=== PATIENT | male | born 1970 | race Caucasian/White ===

== ENCOUNTER 2019-02-04 02:32 | Inpatient (IN) | payer OTHER ==
[~2019-02-04] VITALS: Ht 182.8 cm; Wt 118.9 kg
[2019-02-04] VITALS (9 sets, daily range): BP systolic 128–179; BP diastolic 66–103
--- NOTE | ~2019-02-04 | EKG ---
[place], [place] ELECTROCARDIOGRAM REPORT NAME: JOANA GARCIA UNIT #: [id number] ROOM: 405 DOCTOR: LEMUEL DRAFT REPORT BIRTHDATE: [birth year] [facility] Test Date: 2019-02-04 Test Time: 03:00:29 Pat Name: JOANA GARCIA Department: Room: 405 Gender: M Design Inserter: : 1970 Requested By: CHA CARTY Order Number: [id number] Reading MD: Deborah Henderson MD Measurements Intervals [place] Rate: 85 P: 49 CT: 168 QRS: 1 QRSD: 114 T: 12 QT: 389 QTc: 463 Interpretive Statements Sinus rhythm Incomplete right bundle branch block Electronically Signed On 02-04-2019 15:34:58 PDT by Deborah Henderson MD CM:[id number]:ELECTROCARDIOGRAM REPORT [id number] CHA CARTY MD EPIPHANY DRAFT REPORT CHA CARTY MD
[~2019-02-04 02:32] MED LIST: COZAAR100 MG PO; MOTRIN800 MG PO
[2019-02-04] MEDS ORDERED: AMLODIPINE BESYL5 MG PO (02:35)
[2019-02-04] MEDS ORDERED: LOSARTAN-HCTZ1 EAC1 PO (02:36)
[2019-02-04] MEDS ORDERED: METOPROLOL SUCC25 M2 PO (02:36)
--- NOTE | 2019-02-04 03:01 | NUR ---
PT PROMPTED FOR URINE SPECIMEN.
[2019-02-04 03:19] LABS: BASO # 0.1 10*3/uL (0.0-0.1); BASO % 0.7 % (0.0-1.0); EOS # 0.3 10*3/uL (0.0-0.4); EOS % 3.9 % (1.0-4.0); HEMOGLOBIN 14.8 g/dl (14.0-18.0); LYMPH # 1.4 10*3/uL (1.3-4.4); LYMPH % 18.4 % (27.0-41.0); MEAN CELL VOLUME 88.1 fl (80.0-94.0); MEAN CORPUSCULAR HGB 30.3 pg (27.0-31.0); MEAN CORPUSCULAR HGB CONC 34.4 g/dl (33.0-37.0); MEAN PLATELET VOLUME 9.7 fl (9.6-12.3); MONO # 0.4 10*3/uL (0.1-1.0); MONO % 5.7 % (3.0-9.0); NEUT # 5.2 10*3/uL (2.3-7.9); NEUT % 70.8 % (47.0-73.0); PLATELET COUNT AUTOMATED 232 10*3/uL (130-400); RED BLOOD COUNT 4.88 10*6/uL (4.50-5.90); RED CELL DISTRI WIDTH 13.4 % (0-14.5); WHITE BLOOD COUNT 7.4 10*3/uL (4.8-10.8)
[2019-02-04 03:28] LABS: ACT PARTIAL THROMBO TIME 23.1 SECONDS (20.8-31.5)
[2019-02-04 03:45] LABS: ALBUMIN 3.9 gm/dl (3.1-4.5); ALKALINE PHOSPHATASE 97 U/L (45-117); BUN 19 mg/dl (7-24); CHLORIDE 106 mmol/L (98-107); CREATININE 0.93 mg/dL (0.70-1.30); LIPASE 122 U/L (73-393); POTASSIUM 3.1 mmol/L (3.5-5.1); SGOT/AST 17 IU/L (3-35); SGPT/ALT 32 U/L (12-78); SODIUM 141 mmol/L (136-145); TOTAL PROTEIN 8.2 gm/dL (6.4-8.2); TROPONIN I < 0.015 ng/ml (<0.045)
[2019-02-04 03:48] LABS: BILIRUBIN NEGATIVE (NEGATIVE); BLOOD TRACE-INTACT (NEGATIVE); CLARITY CLEAR (CLEAR); COLOR YELLOW (YELLOW); GLUCOSE 1+ (NEGATIVE); KETONE NEGATIVE (NEGATIVE); LEUKO ESTERASE NEGATIVE (NEGATIVE); NITRITE NEGATIVE (NEGATIVE); SPECIFIC GRAVITY 1.015 (1.005-1.030); UROBILINOGEN 0.2 E.U./dl (0.2-1.0)
[2019-02-04 04:03] LABS: BACTERIA 1+; RBC 0-2 rbc/hpf (0-2); WBC 0-2 wbc/hpf (0-5)
--- NOTE | 2019-02-04 05:09 | NUR ---
PATIENT SLEEPING. NO DISTRESS NOTED. AT BEDSIDE. SHE DENIES ANY NEEDS. BED IN LOW POSITION, SIDE RAILS UPX2, CALL LIGHT IN REACH.
--- NOTE | 2019-02-04 06:09 | NUR ---
PATIENT STATES PHENERGAN WAS EFFECTIVE IN TREATING NAUSEA. VOICES NO OTHER COMPLAINTS AT THIS TIME. BED IN LOW POSITION, SIDE RAILS UPX2, CALL LIGHT IN REACH.
--- NOTE | 2019-02-04 07:14 | NUR ---
REPORT FROM JAVIER, PREVIOUS RN. PT IS RESTING COMFORTABLY IN BED. FAMILY IS AT BEDSIDE.
--- NOTE | 2019-02-04 09:14 | NUR ---
PT MEDICATED WITH PRN ZOFRAN AFTER EMESIS
--- NOTE | 2019-02-04 09:45 | NUR ---
PT STABLE AND READY FOR TRANSPORT TO INPATIENT ROOM.
--- NOTE | 2019-02-04 10:15 | NUR ---
Time: 1014 A 48 year old MALE admitted to under services of JC SHELTON DO. Pt. arrived via bed from ER. Chief complaint: DIZZINESS, NAUSEA, VOMITTING. NIGEL DAVIS
[2019-02-04] MEDS ORDERED: ZOLOFT50 MG PO (11:55)
--- NOTE | 2019-02-04 17:13 | NUR ---
PT MEDICATED WITH PRN ZODRAN FOR C/O NAUSEA.
--- NOTE | 2019-02-04 20:12 | NUR ---
MEDICATED WITH TYLENOL FOR C/O HEADACHE.
--- NOTE | 2019-02-04 22:10 | NUR ---
RESTING IN BED WITH EYES CLOSED. TYLENOL GIVEN EARLIER APPARENTLY EFFECTIVE. CALL LIGHT WITHIN REACH.
[2019-02-04] MEDS ORDERED: TOPROL XL25 MG PO (22:29)
--- NOTE | 2019-02-04 22:47 | NUR ---
ASKED DR. DORADO FOR SCOPOLAMINE PATCH FOR PT. DR. DORADO ASKED IF HE USED THE PATCH AT HOME; INFORMED HIM THAT PATIENT DOES NOT. PATCH NOT ORDERED.
[2019-02-05] VITALS: BP 138/87
--- NOTE | 2019-02-05 00:07 | NUR ---
C/O HEADACHE & NAUSEA. MEDICATED WITH TYLENOL & ZOFRAN PER M.D. ORDERS/PT'S REQUEST.
--- NOTE | 2019-02-05 03:42 | NUR ---
RESTING IN BED SLEEPING; MEDICATIONS GIVEN EARLIER APPARENTLY EFFECTIVE.
[2019-02-05 06:21] LABS: HEMOGLOBIN 14.7 g/dl (14.0-18.0); MEAN CELL VOLUME 87.4 fl (80.0-94.0); MEAN CORPUSCULAR HGB 29.9 pg (27.0-31.0); MEAN CORPUSCULAR HGB CONC 34.2 g/dl (33.0-37.0); MEAN PLATELET VOLUME 10.2 fl (9.6-12.3); PLATELET COUNT AUTOMATED 283 10*3/uL (130-400); RED BLOOD COUNT 4.92 10*6/uL (4.50-5.90); RED CELL DISTRI WIDTH 13.5 % (0-14.5); WHITE BLOOD COUNT 16.6 10*3/uL (4.8-10.8)
[2019-02-05 06:56] LABS: CHLORIDE 102 mmol/L (98-107); SODIUM 137 mmol/L (136-145)
[2019-02-05 07:08] LABS: ALBUMIN 3.7 gm/dl (3.1-4.5); ALKALINE PHOSPHATASE 92 U/L (45-117); BUN 16 mg/dl (7-24); CHOLESTEROL 221 mg/dL (<200); CREATININE 0.98 mg/dL (0.70-1.30); FREE T4 0.91 ng/dl (0.76-1.46); HDL CHOLESTEROL 61 mg/dl (40-60); LDL CHOLESTEROL 145 mg/dL (9-159); PHOSPHOROUS 3.1 mg/dL (2.5-4.9); SGOT/AST 14 IU/L (3-35); SGPT/ALT 26 U/L (12-78); THYROID STIM HORMONE (HS) 0.656 uIU/ml (0.358-4.75); TOTAL PROTEIN 7.7 gm/dL (6.4-8.2); TRIGLYCERIDES 76 mg/dl (<150); VLDL CHOLESTEROL 15 mg/dL (6-40)
[2019-02-05 07:12] LABS: PLATELET SUFFICIENCY NORMAL (NORMAL); TOTAL CELLS COUNTED 100 #CELLS
[2019-02-05 07:12] LABS: VITAMIN D, 25-HYDROXY 25.8 ng/mL (30-100)
--- NOTE | 2019-02-05 08:20 | NUR ---
PATIENT HAD ONE CLEAR LIQUID EMESIS; MEDICATED WITH PRN IV ZOFRAN FOR NAUSEA/VOMITING AND ALSO TYLENOL FOR HEADACHE AT THIS TIME.
[2019-02-05 08:23] VITALS: BP 162/96
--- NOTE | 2019-02-05 12:15 | NUR ---
MEDICATED WITH PRN PO TYLENOL FOR HEADACHE TO LEFT ORTHODOXY AREA; NAUSEA CONTINUES, UNABLE TO TOLERATE A SOFT DIET OR MORE THAN FEW SIPS OF LIQUIDS, SCHEDULED IV ZOFRAN ALSO GIVEN AT THIS TIME.
[2019-02-05 16:00] VITALS: BP 136/81
--- NOTE | 2019-02-05 16:57 | NUR ---
MEDICATED WITH PRN PO TYLENOL FOR RIGHT JAINISM PUSATING HEADACHE. PER , SLIGHT SWELLING TO RIGHT JAINISM IS PALPAPLE COMPARED TO LEFT SIDE. NO SWELLING OR MASS PALPATED WHEN ASSESSED BY MYSELF.
[2019-02-05 20:00] VITALS: BP 158/79
--- NOTE | 2019-02-05 20:58 | NUR ---
MEDICATED WITH TYLENOL FOR C/O HEADACHE.
--- NOTE | 2019-02-05 23:00 | NUR ---
RESTING IN BED WITH EYES CLOSED. IV FLUIDS CONTINUE TO INFUSE ORDERED. NO DISTRESS NOTED. CALL LIGHT WITHIN REACH.
[2019-02-06] VITALS: BP 158/97
--- NOTE | 2019-02-06 05:00 | NUR ---
MEDICATED WITH TYLENOL FOR C/O MILD HEADACHE. CALL LIGHT WITHIN REACH.
[2019-02-06 08:00] VITALS: BP 146/85
[2019-02-06 08:36] LABS: BUN 17 mg/dl (7-24); CHLORIDE 107 mmol/L (98-107); CREATININE 0.99 mg/dL (0.70-1.30); POTASSIUM 3.4 mmol/L (3.5-5.1); SODIUM 143 mmol/L (136-145)
--- NOTE | 2019-02-06 09:00 | NUR ---
RESTING IN BED VISITING. VOICES NO C/O. TYLENOL GIVEN EARLIER APPARENTLY EFFECTIVE. CALL LIGHT WITHIN REACH.
--- NOTE | 2019-02-06 10:30 | NUR ---
IV FLUIDS DISCONTINUED PER M.D. ORDERS. PT. OUT IN ROSE WALKING WITH FAMILY. STATES PATIENT BETTER BUT STILL SOMEWHAT UNSTEADY. GAIT SLOW; FAMILY AT PT'S SIDE.
[2019-02-06] MEDS ORDERED: MECLIZINE HCL25 M2 PO (10:44)
[2019-02-06] MEDS ORDERED: PREDNISONE10 MG PO (10:44)
--- NOTE | 2019-02-06 12:05 | NUR ---
Discharge instructions reviewed with patient/family. Patient receptive and verbalizes understanding. Follow-up care arranged. Written instructions given to patient/family. HEPLOCK REMOVED 2X2 APPLIED. ASSISTED OFF FLOOR VIA WHEELCHAIR WITH VISITOR AT HIS SIDE. LALO KOO R
== END 2019-02-06 12:05 | disposition home or self-care (01) | DRG 149 ==
LOC: ED 02:32 → EDHOLD 07:28 → 4E 09:36
PROVIDERS: Emergency Medicine Emergency Medical Services; Registered Nurse; Student in an Organized Health Care Education/Training Program; ADMIT Emergency Medicine
DX: H83.09 Labyrinthitis, unspecified ear (principal); E87.6 Hypokalemia; D86.9 Sarcoidosis, unspecified; E83.51 Hypocalcemia; E83.41 Hypermagnesemia; G47.30 Sleep apnea, unspecified; I10 Essential (primary) hypertension; R73.9 Hyperglycemia, unspecified; Z88.8 Allergy status to other drugs, medicaments and biological substances; Z83.3 Family history of diabetes mellitus; Z79.899 Other long term (current) drug therapy

== ENCOUNTER → 2019-09-16 | Outpatient (CLI) | payer OTHER ==
[~2019-09-16] MED LIST changes: +AMLODIPINE BESYL5 MG PO; +LOSARTAN-HCTZ1 EAC1 PO; +MECLIZINE HCL25 M2 PO; +METOPROLOL SUCC25 M2 PO; +PREDNISONE10 MG PO; +TOPROL XL25 MG PO; +ZOLOFT50 MG PO
== END | disposition home or self-care (01) ==
LOC: RAD 08:12
DX: M43.16 Spondylolisthesis, lumbar region (principal)

== ENCOUNTER → 2021-04-26 | Outpatient (CLI) | payer OTHER ==
[~2021-04-26] MED LIST changes: +LIPITOR10 MG PO; +RYBELSUS7 MG PO
== END | disposition home or self-care (01) ==
LOC: CARD 01:32
PROVIDERS: ATTEND Internal Medicine Cardiovascular Disease
DX: I10 Essential (primary) hypertension (principal); R07.89 Other chest pain; R94.31 Abnormal electrocardiogram [ECG] [EKG]; E78.5 Hyperlipidemia, unspecified; I45.10 Unspecified right bundle-branch block

== ENCOUNTER → 2021-05-13 | Outpatient (CLI) | payer OTHER | END | disposition home or self-care (01) | LOC: CARD 09:09 | PROVIDERS: ATTEND Internal Medicine Cardiovascular Disease | DX: I51.7 Cardiomegaly (principal); I10 Essential (primary) hypertension; I45.10 Unspecified right bundle-branch block; R94.31 Abnormal electrocardiogram [ECG] [EKG] ==

== ENCOUNTER → 2023-10-08 | Outpatient (CLI) | payer OTHER | END | disposition home or self-care (01) | LOC: RAD 17:36 | DX: M77.31 Calcaneal spur, right foot (principal); M77.32 Calcaneal spur, left foot ==